=== PATIENT | male | born 1960 | race Caucasian/White ===

== ENCOUNTER 2018-04-24 08:44 | Emergency (ER) | payer OTHER, SELFPAY ==
[2018-04-24 08:45] VITALS: BP 154/89; PULSE 84; RESP 15; TEMP 36.6; O2SAT 95; BMI 31.6
--- NOTE | 2018-04-24 09:30 | ED.VISSUMM ---
- ER Visit Summary Date of Service: 04/24/18 Chief Complaint: Light sensitivity and pain left eye secondary to blunt trauma History of Present Illness: The patient is a 69 F who presents because he states his left eye is no better since yesterday. He was cutting wood with a circular saw. Chip struck left eye in spite of wearing safety glasses. He complains of pain, light sensitivity and foreign body sensation. There is no history of glaucoma. He denies double vision, loss of vision or change in vision. He does report pain with movement of his eye. He denies any other symptoms. Physical Examination: Vital signs noted. Visual acuity is 20/25 right eye, 2030 left eye and 20/25 both eyes. Pupils are equal round reactive. Extraocular muscle intact. Sclerae anicteric. Conjunctive is not injected. There is no obvious foreign body. There is no abnormality the lid, lash or lacrimal apparatus. Inversion the lid reveals no foreign body. Eyes were anesthetized with tetracaine and stained with floor seen. There is photophobia to direct light but not consensual light. There is corneal abrasion 1-2 mm in the limbal 40 from 5:00 to 7:00 left eye. No flare or cells noted. There is no evidence of trauma to the upper eyelid. Test Results: None Emergency Department Course and Treatment: Visual acuity, topical anesthetic and floor seen. Slit-lamp exam and only abnormality was corneal abrasion. Treatment Plan: Referral to ophthalmology Disposition: Discharged to home Impression: Corneal abrasion left eye secondary to blunt trauma This note was generated with [employer] dictation software. It may contain incorrect words, spelling, and punctuation that were not noted in review of the chart prior to signing ED Disposition - Plan for ED Patient: Disposition: Home or Assisted Living Chief Complaint: Eye Problem Instructions: Corneal Injury Referrals: Care Physician,No Primary [Primary Care Provider] - Vincenzo Rice MD [STAFF PHYSICIAN] - 1 Day for another exam
[2018-04-24] MEDS: Tetracaine 0.5% Ophthalmic Bottle 1 DRP EACH EYE (09:37)
== END 2018-04-24 09:51 | disposition home or self-care (01) ==
PROVIDERS: Emergency Provider Emergency Medicine
DX: S05.02XA Injury of conjunctiva and corneal abrasion without foreign body, left eye, initial encounter (principal); W22.8XXA Striking against or struck by other objects, initial encounter; Y93.9 Activity, unspecified; Y92.89 Other specified places as the place of occurrence of the external cause; Y99.9 Unspecified external cause status; Z72.0 Tobacco use
CPT/HCPCS: 99284

== ENCOUNTER 2019-02-04 06:24 | Emergency (ER) | payer OTHER, SELFPAY ==
[2019-02-04 06:24] VITALS: BP 158/99; PULSE 97; RESP 18; TEMP 36.7; O2SAT 97; BMI 32.4
--- NOTE | 2019-02-04 06:35 | RAD_ITS ---
STUDY: X-RAY - LEFT HAND REASON FOR EXAM: Male, 59 years old. Pain TECHNIQUE: 3 view(s) of the hand. COMPARISON: None. FINDINGS: Evaluation of the proximal phalanx of the fourth digit is nondiagnostic due to overlying ring. The patient could not remove the ring. There is mild soft tissue edema. There is a 1 mm bony density projecting over the dorsal aspect of the distal interphalangeal joint of the second digit. There is likely cortical irregularity of the dorsal aspect of the base of the distal phalanx of the second digit. RAD/Hand Min 3 Views IMPRESSION: Evaluation of the proximal phalanx of the fourth digit is nondiagnostic due to overlying ring. The patient could not remove the ring Old or new small avulsion fracture involving the dorsal aspect of the base of distal phalanx of the second digit. This should be correlated with point tenderness and clinical history. Electronically Signed: Herbie Raya, at 7:20 EDT Tel , Service support ,
--- NOTE | 2019-02-04 06:57 | ED.VISSUMM ---
- ER Visit Summary Date of Service: 02/04/19 Chief Complaint: Fall History of Present Illness: The patient is a 48 M who presents after a fall. 4 days ago he was at work. He went in a different door than he usually uses and the threshold is higher. He tripped over the threshold and fell injuring his left hand. No other injuries. He denies paresthesias weakness numbness tingling loss of function. He has tried an herbal supplement for pain but no other medications or treatment. Physical Examination: Afebrile vitals unremarkable No distress Heart regular rate No respiratory distress Patient has some diffuse left hand tenderness no focal bony tenderness no deformity no soft tissue swelling no ecchymosis he has normal sensation to light touch brisk capillary refill active full range of motion normal opposition of the digits Test Results: Left hand x-ray shows no fracture on my review, radiology read pending. Emergency Department Course and Treatment: Patient was advised on supportive care including ice elevation anti-inflammatory use. He will follow-up with Worker's Comp. as an outpatient. Patient discharged. Treatment Plan: [] Disposition: Discharge Impression: Left hand contusion This note was generated with [employer] dictation software. It may contain incorrect words, spelling, and punctuation that were not noted in review of the chart prior to signing ED Disposition - Plan for ED Patient: Referrals: Care Physician,No Primary [Primary Care Provider] -
--- NOTE | 2019-02-04 07:01 | ED.DEP ---
ED Disposition - Plan for ED Patient: Instructions: CONTUSION, Hand Referrals: Care Physician,No Primary [Primary Care Provider] - Corporate,Care [GROUP OF PHYSICIANS] -
[2019-02-04 07:20] VITALS: PULSE 95; RESP 17; O2SAT 97
== END 2019-02-04 07:21 | disposition home or self-care (01) ==
LOC: ED 06:38
PROVIDERS: Emergency Provider Emergency Medicine
DX: S60.222A Contusion of left hand, initial encounter (principal); W01.0XXA Fall on same level from slipping, tripping and stumbling without subsequent striking against object, initial encounter; F41.9 Anxiety disorder, unspecified; Z72.0 Tobacco use
CPT/HCPCS: 73130; 99282

== ENCOUNTER 2020-01-18 02:49 | Emergency (ER) | payer OTHER, SELFPAY ==
[2020-01-18 02:50] VITALS: BP 199/117; PULSE 101; RESP 20; TEMP 36.6; O2SAT 94; BMI 29.8
--- NOTE | 2020-01-18 02:54 | ED.DCSUM_ITS ---
History of Present Illness Chief Complaint: Upper Extremity Injury Informant: Patient Narrative: Patient presents with amputation of the third and fourth digits involving a table saw accident. No other injuries this was work-related. Past Medical History - Allergies and Home Meds Allergies/Adverse Reactions: Allergies No Known Allergies Allergy (Verified 01/18/20 02:56) Primary Care Physician: Angella Physician,No Primary [Primary Care Provider] - Past Medical History: - - Anxiety and depression Smoking Status: Current every day smoker Review of Systems General: Reports: - - 3 Musculoskeletal: Reports: - - Hand laceration Skin: Reports: - - Wound as above Neurological: Reports: Numbness Hematologic: Denies: Easy bruising, Easy bleeding Physical Exam General: - - He does appear in some distress Head: Normocephalic, Atraumatic Cardiovascular: Regular rate, Regular rhythm Respiratory: No distress, CTA bilaterally Abdomen: Soft, Nontender Extremities: - - He has an amputation of the third and fourth digits of his left hand these are both partial amputations. Skin: - - Lacerations as above Neurological: - - Decreased sensation and his distal amputated regions Diagnostic/Tx/Re-eval Hand x-ray interpreted by me shows a third digit distal phalanx comminuted fracture, there is quite a bit of soft tissue disturbance in the third and fourth digits. - Medical Decision Making Patient is found to have a third digit distal phalanx through and through amputation, no fracture on the fourth digit. I will send him to [facility] for hand consult. Ancef, tetanus and analgesia were provided. ED Disposition - Plan for ED Patient: Disposition: Psychiatric Hospital or Unit Diagnosis: Finger amputation, traumatic Referrals: Care Physician,No Primary [Primary Care Provider] -
[2020-01-18] MEDS: HYDROmorphone 1 MG/ML Syringe IV (03:03)
[2020-01-18] MEDS: Diphth,Pertuss(Acell),Tet Vac 0.5 ML Vial IM (03:03)
[2020-01-18] MEDS: Cefazolin 1 GM/50 ML BAG IV (03:08)
--- NOTE | 2020-01-18 03:15 | RAD_ITS ---
STUDY: X-RAY - LEFT HAND REASON FOR EXAM: Male, 60 years old. left hand injury from table saw today. patient states most pain in left third digit. TECHNIQUE: Three view(s) of the hand. COMPARISON: None. FINDINGS: Normal radiocarpal articulation. Normal distal radioulnar joint. Normal visualized carpal bones. Normal carpal articulations Normal carpometacarpal articulation of the thumb. Normal second through fifth carpometacarpal joints. Normal metacarpi. Normal metacarpophalangeal joint of the thumb. Normal interphalangeal joint of the thumb. Normal proximal and distal phalanges of the thumb. Normal metacarpophalangeal joints of the second through fifth fingers. Normal proximal and distal interphalangeal joints of the second through fifth fingers. There is a comminuted displaced fracture of the distal phalanx of the middle finger. The soft tissue structures are unremarkable. RAD/Hand Min 3 Views IMPRESSION: There is a comminuted displaced fracture of the distal phalanx of the middle finger. Electronically Signed: Ryan Haley, at 3:39 EDT Tel , Service support ,
[2020-01-18 04:54] VITALS: BP 151/87; PULSE 86; RESP 18; O2SAT 98
== END 2020-01-18 04:54 | disposition short-term general hospital (02) ==
PROVIDERS: Emergency Provider Emergency Medicine; PCP Internal Medicine
DX: S68.123A Partial traumatic metacarpophalangeal amputation of left middle finger, initial encounter (principal); S68.125A Partial traumatic metacarpophalangeal amputation of left ring finger, initial encounter; Y93.9 Activity, unspecified; W31.2XXA Contact with powered woodworking and forming machines, initial encounter; Y92.89 Other specified places as the place of occurrence of the external cause; Y99.0 Civilian activity done for income or pay; F32.9 Major depressive disorder, single episode, unspecified; F41.9 Anxiety disorder, unspecified; F17.200 Nicotine dependence, unspecified, uncomplicated; Z23 Encounter for immunization
CPT/HCPCS: 73130; 90715; 96365; 96375; 99285; J7050

== ENCOUNTER 2020-06-01 10:24 | Inpatient (IN) | payer MEDICAID, SELFPAY ==
[2020-06-01 10:25] VITALS: BP 127/88; PULSE 96; RESP 18; TEMP 36.6; O2SAT 97; BMI 34.4
--- NOTE | 2020-06-01 10:47 | ED.VIS.GEN ---
History of Present Illness Chief Complaint: Substance Abuse Informant: Patient Onset: Today Timing: Continuous Narrative: Patient wants help stopping drinking. He has been drinking heavily for 40 years, never gone through detox, his last drink was this morning and he has no symptoms of withdrawal at this time although he usually feels shaky every morning before he starts drinking. He states recently, he has been drinking around 15 beers per day. He does not drink anything else and does not use any other illicit substances. He denies any recent illnesses or injuries. He does have hemorrhoids often but denies any bleeding from his bowels recently. He denies any known history of jaundice or itching all over. - Past Medical History (1) Alcoholism Status: Chronic (2) Hypertension Status: Chronic Past Medical History - Allergies and Home Meds Allergies/Adverse Reactions: Allergies No Known Allergies Allergy (Verified 06/01/20 10:28) Primary Care Physician: Annemarie Martinez MD [Primary Care Provider] - Smoking Status: Current every day smoker Review of Systems General: Denies: Chills, Fever, Sweats Eyes: Denies: Visual changes - bilaterally, Diplopia ENT: Denies: Rhinorrhea, Sore throat Cardiovascular: Denies: Chest pain, Palpitations Respiratory: Denies: Dyspnea, Cough, Dyspnea on exertion Gastrointestinal: Denies: Abdominal pain, Nausea, Vomiting, Diarrhea, Melena, Hematochezia Genitourinary: Denies: Dysuria, Hematuria, Frequency Musculoskeletal: Denies: Back pain, Extremity Pain Skin: Denies: Rash, Wounds Neurological: Denies: Headache, Weakness, Numbness Psych: Denies: Suicidal thoughts, Suicidal ideations Physical Exam Vital Signs/Narrative: Vital Signs Temp Pulse Resp BP Pulse Ox 06/01/20 10:25 97.8 F 96 18 127/88 H 97 Inital Vital Signs reviewed: Yes General: Well nourished, Well developed, Obese, No Acute Distress Head: Normocephalic, Atraumatic Eyes: Perrl, EOMI. Negative for: Scleral icterus - And no sublingual jaundice ENT: Moist mucous membranes, No rhinorrhea Neck: Supple, Nontender Cardiovascular: Regular rate, Regular rhythm, No murmurs Respiratory: No distress, CTA bilaterally, Chest nontender Abdomen: Soft, Nontender, Nondistended, Normal bowel sounds Back: Nontender, Normal Inspection Extremities: Nontender, No edema. Negative for: Calf Tenderness Skin: Normal color, No rash, No Trauma. Negative for: Jaundice Neurological: Alert, Oriented x3, Cranial nerves II-XII grossly intact, Normal Strength, Normal Sensation, Normal Gait Psychological: Normal affect, Normal Mood, - - Pleasantly intoxicated Diagnostic/Tx/Re-eval Laboratory Results 06/01/20 06/01/20 06/01/20 12:00 12:35 12:35 WBC 6.5 RBC 4.61 Hgb 15.2 Hct 44.7 MCV 97.0 H MCH 33.0 H MCHC 34.0 RDW Std Deviation 44.0 H RDW Coeff of Ralph 12.3 Plt Count 176 MPV 10.7 Immature Gran % (Auto) 0.500 Neut % (Auto) 47.5 Lymph % (Auto) 42.6 H [place] % (Auto) 6.3 Eos % (Auto) 2.3 Baso % (Auto) 0.8 Absolute Neuts (auto) 3.1 Absolute Lymphs (auto) 2.75 Nucleated RBC % 0 PT 12.8 INR 1.0 Sodium Potassium Chloride Carbon Dioxide Anion Gap BUN Creatinine Estim Creat Clear Calc Est GFR (MDRD) Af Amer Est GFR (MDRD) Non-Af BUN/Creatinine Ratio Glucose Calcium Total Bilirubin AST ALT Alkaline Phosphatase Total Protein Albumin Globulin Albumin/Globulin Ratio Urine Opiates Screen NEGATIVE Urine Methadone Screen NEGATIVE Ur Barbiturates Screen NEGATIVE Ur Phencyclidine Scrn NEGATIVE Ur Amphetamines Screen NEGATIVE U Methamphetamin-MDMA POSITIVE H U Benzodiazepines Scrn NEGATIVE Urine Cocaine Screen NEGATIVE U Cannabinoids Screen NEGATIVE Ur Drug Screen Comment Ethyl Alcohol 06/01/20 06/01/20 12:35 12:35 WBC RBC Hgb Hct MCV MCH MCHC RDW Std Deviation RDW Coeff of Ralph Plt Count MPV Immature Gran % (Auto) Neut % (Auto) Lymph % (Auto) [place] % (Auto) Eos % (Auto) Baso % (Auto) Absolute Neuts (auto) Absolute Lymphs (auto) Nucleated RBC % PT INR Sodium 139 Potassium 4.0 Chloride 106 Carbon Dioxide 26.0 Anion Gap 7 BUN 12 Creatinine 0.75 Estim Creat Clear Calc 100.37 Est GFR (MDRD) Af Amer 137 Est GFR (MDRD) Non-Af 113 BUN/Creatinine Ratio 16.0 Glucose 115 H Calcium 8.8 Total Bilirubin 0.30 AST 26 ALT 54 Alkaline Phosphatase 90 Total Protein 8.4 H Albumin 4.1 Globulin 4.3 H Albumin/Globulin Ratio 1.0 Urine Opiates Screen Urine Methadone Screen Ur Barbiturates Screen Ur Phencyclidine Scrn Ur Amphetamines Screen U Methamphetamin-MDMA U Benzodiazepines Scrn Urine Cocaine Screen U Cannabinoids Screen Ur Drug Screen Comment Ethyl Alcohol 212.0 - Medical Decision Making Patient is showing positive methamphetamine on toxicology but I think this is due to cross-reactivity with his sertraline. Plan is for admission for detox. Patient is stable and currently mildly intoxicated. ED Disposition - Plan for ED Patient: Disposition: Acute Care Hospital [facility] Diagnosis: Alcohol dependence, Alcoholism Referrals: Annemarie Martinez MD [Primary Care Provider] -
--- NOTE | 2020-06-01 11:30 | CM.ED ---
SOCIAL WORK Informant: Nursing Reason for Consult: Substance Abuse Prior to patient's arrival received call from Danyell with [facility] reporting [facility] is covering patient's stay and invoice will need sent to Wero at [facility]. This worker updated registration. Met with patient in room. Introduced role and reason for consult. Patient discussed history of alcohol abuse. Patient states lives home with and reports I know I need to quit drinking. Patient states has already spoken with [facility]. Education provided on [facility] program. All questions answered. Patient in agreement with plan of care. Plan: Admit to [facility], this worker to update [facility] Treatment Navigator. Willa Mayfield, PROJECT ACCOUNT MANAGER, AUTO BODY MECHANIC
[2020-06-01 12:56] LABS: Absolute Lymphocyte Count 2.75 X10^3/uL (0.83-4.51); Absolute Neutrophil Count 3.1 X10^3/uL (2.0-7.7); Basophil# 0.05 X10^3/uL; Basophil% 0.8 % (0-1); Eosinophil# 0.15 X10^3/uL; Eosinophils% 2.3 % (0-5); Hematocrit 44.7 % (40-54); Hemoglobin 15.2 g/dL (13.0-16.5); Lymphocyte # 2.75 X10^3/ul (4.0); Lymphocyte % 42.6 % (19-41); Mean Platelet Vol. 10.7 fl (6.2-12.0); Monocyte# 0.41 X10^3/uL; Monocyte% 6.3 % (0-10); NRBC Flagged by Analyzer 0 % (0-5); Neutrophil # 3.07 X10^3/uL (2.7-7.7); Neutrophil % 47.5 % (47-70); Platelet Count 176 K/mm3 (150-450); RBC Distribution Width CV 12.3 % (11.6-14.6); Red Blood Count 4.61 M/mm3 (4.6-6.2); White Blood Count 6.5 K/mm3 (4.4-11.0)
[2020-06-01 13:05] LABS: Amphetamine Urine VISTA NEGATIVE (<1000 ng/mL); Barbiturate Urine VISTA NEGATIVE (< 200 ng/mL); Benzodiazepine Urine VISTA NEGATIVE (< 200 ng/mL); Cocaine Urine VISTA NEGATIVE (< 300 ng/mL); Ecstacy Urine VISTA POSITIVE (< 500 ng/mL); Methadone Urine VISTA NEGATIVE (< 300 ng/mL); PCP Urine VISTA NEGATIVE (< 25 ng/mL); THC Urine VISTA NEGATIVE (< 50 ng/mL); Vista UDS pH Range 6
[2020-06-01 13:12] LABS: AST(SGOT) 26 U/L (15-37); Alanine Aminotransfer ALT/SGPT 54 U/L (16-61); Albumin, Serum 4.1 g/dL (3.2-5.0); Alkaline Phosphatase 90 U/L (45-117); Anion Gap 7 (5-15); BUN 12 mg/dL (7-18); Calcium,Total 8.8 mg/dL (8.5-10.1); Chloride 106 mmol/L (98-107); Creatinine, Serum 0.75 mg/dL (0.70-1.30); EST Glomerular Filtration Rate 113 mL/min (>60); Est Glom Filt Rate - Afr Amer 137 mL/min (>60); Estimated Creatinine Clearance 100.37 ml/min; Globulin 4.3 g/dL (2.2-4.2); Glucose 115 mg/dL (74-106); Protein, Total 8.4 g/dL (6.4-8.2); Sodium Level 139 mmol/L (136-145)
[2020-06-01 13:14] LABS: Prothrombin Time (Protime)PT. 12.8 SECONDS (11.7-14.9)
[2020-06-01 13:46] VITALS: BP 140/92; PULSE 91; RESP 18; O2SAT 95
--- NOTE | 2020-06-01 13:47 | HP.PCM_ITS ---
Problem List (1) Alcoholism Status: Chronic (2) Hypertension Status: Chronic Qualifiers: Hypertension type: essential hypertension Qualified Code(s): I10 - Essential (primary) hypertension (3) Anxiety and depression Status: Chronic History of Present Illness Date of Admission: 06/01/20 Chief Complaint: Request for medical stabilisation for alcohol withdrawal The patient is a 60 year old M with past medical history of anxiety/depression, chronic alcohol use disorder who comes in for medical stabilization for acute alcohol withdrawal. Patient has been drinking alcohol for the past 40 years. He drinks about 150 cans of beer every week. Patient has been looking for ways to quit. He has not tried to quit before. He spoke to his primary care doctor and was asked to come. He last drank alcohol about 12 hours prior to admission. He admits to some nervousness but no tremors. He denied any dizziness or palpitation or chest pain. His vitals in the ED showed temperature of 97.8F, heart rate 96, blood pressure 127/88, respiratory rate 18, SPO2 is 97% on room air. His CBC is remarkable for elevated MCH and MCV. CMP was unremarkable. Urine tox was positive for methamphetamines. Alcohol level was 212 Past Medical History Past Medical History (Chronic Problems): Chronic Problems Alcoholism (Chronic) Hypertension (Chronic) Anxiety and depression (Chronic) Allergies No Known Allergies Allergy (Verified 06/01/20 10:28) Home Medications: Ambulatory Orders Medication Instructions Recorded Bupropion HCl [Bupropion Xl] 300 mg PO DAILY 01/18/20 Atorvastatin Calcium [Lipitor] 20 mg PO QHS 06/01/20 Lisinopril [Prinivil] 10 mg PO DAILY 06/01/20 Tamsulosin HCl [Flomax] 0.4 mg PO QHS 06/01/20 Venlafaxine XR [Effexor Xr] 37.5 mg PO UD 06/01/20 Surgical History: - - Surgery in his legs, post-war Psychiatric History: Anxiety, Depression Lives: Spouse/ Significant Other, With Family Smoking Status: Current every day smoker Tobacco Use: Cigarettes Alcohol: Heavy Drugs: None - *Family History Maternal History Items: Heart Disease Paternal History Items: COPD Review of Systems Constitutional: Denies: Anorexia, Chills, Fever, Night Sweats, Malaise, Weakness, Weight Change, Fatigue Eyes: Denies: Blurred vision, Cataracts, Conjunctivae Inflammation, Pain, Redness HEENT: Denies: Difficulty Hearing, Difficulty Swallowing, Head Aches, Hearing Changes, Sinus Congestion, Sinus Drainage Cardiovascular: Denies: Chest Pain, Claudication, Palpitations, Paroxysmal Noc. Dyspnea Respiratory: Denies: Cough, Hemoptysis, Shortness of breath at rest, Shortness of breath upon exertion, Sputum production Gastrointestinal: Denies: Abdominal Pain, Hematemesis, Hematochezia, Nausea, Vomiting Genitourinary: Denies: Dysuria, Frequency, Incontinence, Nocturia Musculoskeletal: Denies: Joint Pain, Joint stiffness, Joint swelling, Joint Tenderness Skin: Denies: Rash, Wounds Neurological: Denies: Focal weakness, Numbness, Tingling, Tremor Psychiatric: Denies: Anxiety, Depression, Homicidal Ideations, Suicidal Ideations Hematologic/ Lymphatic: Denies: Easy Bruising, Easy Bleeding VTE Information - Inpt Only VTE Present on Admission: No VTE Pharm Prophylaxis ordered?: Yes Patient Problems: Active and Suspected Problems Alcohol dependence (Acute) - Physical Exam Vitals/I&O's: Vital Signs Temp Pulse Resp BP Pulse Ox 97.8 F 96 18 127/88 H 97 06/01/20 10:25 06/01/20 10:25 06/01/20 10:25 06/01/20 10:25 06/01/20 10:25 Oxygen Delivery Method Room Air Weight: 99.79 kg Body Mass Index (BMI) 34.4 General: Alert, Oriented x3, Cooperative, No apparent distress, - - looks slightly nervous HEENT: Atraumatic, PERRLA, EOMI, Normocephalic Oral: Moist Mucosa Neck: Supple Lungs: Clear to auscultation, Normal air movement Cardiovascular: Regular rate, Regular Rhythm, Normal S1, Normal S2, No murmurs Abdomen: Bowel Sounds Present, Soft, Non Tender, Non-Distended, No Hepato- splenomegaly Extremities: No edema Skin: No rashes, No breakdown Musculoskeletal: No Tenderness to Palpation of Joints or Extremities Lymphatic: No Cervical, Supraclavicular, or Inguinal Adenopathy Neurological: Cranial nerves II-XII grossly intact, Neuro grossly intact Psych/Mental Status: Normal Affect, Appropriate Laboratory Results 06/01/20 12:00: Urine Opiates Screen NEGATIVE, Urine Methadone Screen NEGATIVE, Ur Barbiturates Screen NEGATIVE, Ur Phencyclidine Scrn NEGATIVE, Ur Amphetamines Screen NEGATIVE, U Methamphetamin-MDMA POSITIVE H, U Benzodiazepines Scrn NEGATIVE, Urine Cocaine Screen NEGATIVE, U Cannabinoids Screen NEGATIVE, Ur Drug Screen Comment 06/01/20 12:35: WBC 6.5, RBC 4.61, Hgb 15.2, Hct 44.7, MCV 97.0 H, MCH 33.0 H, MCHC 34.0, RDW Std Deviation 44.0 H, RDW Coeff of Ralph 12.3, Plt Count 176, MPV 10.7, Immature Gran % (Auto) 0.500, Neut % (Auto) 47.5, Lymph % (Auto) 42.6 H, [place] % (Auto) 6.3, Eos % (Auto) 2.3, Baso % (Auto) 0.8, Absolute Neuts (auto) 3.1, Absolute Lymphs (auto) 2.75, Nucleated RBC % 0 06/01/20 12:35: PT 12.8, INR 1.0 06/01/20 12:35: Sodium 139, Potassium 4.0, Chloride 106, Carbon Dioxide 26.0, Anion Gap 7, BUN 12, Creatinine 0.75, Estim Creat Clear Calc 100.37, Est GFR (MDRD) Af Amer 137, Est GFR (MDRD) Non-Af 113, BUN/Creatinine Ratio 16.0, Glucose 115 H, Calcium 8.8, Total Bilirubin 0.30, AST 26, ALT 54, Alkaline Phosphatase 90, Total Protein 8.4 H, Albumin 4.1, Globulin 4.3 H, Albumin/Globulin Ratio 1.0 06/01/20 12:35: Ethyl Alcohol 212.0 Assessment/Plan All Active Problems Alcohol dependence (Acute) 1. Anticipated acute alcohol withdrawal, in a known chronic alcohol use patient Patient drinks about 150 cans of beer daily; 40-year history of chronic alcohol use Request for medical stabilization to quit Would admit to the MedSur floor, monitor on the phenobarbital withdrawal protocol 2. Elevated MCV/MCH, in a known alcoholic, Will check folate, B12, TSH levels 3. Hypertension/hyperlipidemia, stable, continue on lisinopril and atorvastatin 4. Anxiety/depression, continue on home bupropion as well as Effexor 5. DVT prophylaxis-low risk, encourage ambulation 6. Code status - Full code I discussed and explained in details the various types of CODE STATUS-full code, DNR CCA, DNR CC. Patient would not like to be on life support for a long time. He prefers being full code and letting his decide at that time. Time spent discussing CODE STATUS 16 minutes Inpatient E&M: 85131 Init Hosp L2 Procedures: 88147 Advncd Care Plan 30 Min
[2020-06-01 13:57] VITALS: BP 140/92; PULSE 90; RESP 18; TEMP 36.4; O2SAT 98
--- NOTE | 2020-06-01 14:02 | NURSING ---
MED SURG PAINTSIL ALCOHOL DEPENDENCE
--- NOTE | 2020-06-01 14:04 | CM.ED ---
SOCIAL WORK Call to [facility] Treatment Navigator to update on patient's admission. No answer, left message. Plan: Admit to CORI Mayfield MSW, FREIGHT COORDINATOR
[2020-06-01 14:18] VITALS: BMI 34.5
[2020-06-01 15:30] VITALS: BMI 31.6
[2020-06-01 15:33] VITALS: BP 141/99; PULSE 92; RESP 16; TEMP 36.8; O2SAT 93
[2020-06-01] MEDS: Phenobarbital 32.4 MG Tablet 64.8 MG PO ×2 (15:46→19:52)
[2020-06-01 16:25] LABS: Magnesium 2.5 mg/dL (1.6-2.6); Thyroid Stim Hormone (TSH) 1.57 uIU/mL (0.358-3.74)
[2020-06-01] MEDS: Acetaminophen 325 MG Tablet 650 MG PO (19:52)
[2020-06-01] MEDS: hydrOXYzine PAM 25 MG Capsule 50 MG PO (19:52)
[2020-06-01 20:00] VITALS: BP 140/96; PULSE 92; RESP 16; TEMP 36.9; O2SAT 93
[2020-06-01] MEDS: Atorvastatin Calcium 20 MG Tablet PO (21:47)
[2020-06-01] MEDS: Tamsulosin HCl 0.4 MG Capsule PO (21:48)
[2020-06-02] MEDS: Phenobarbital 32.4 MG Tablet 64.8 MG PO ×6 (00:09→21:36)
[2020-06-02 00:12] VITALS: BP 138/92; PULSE 92; RESP 18; TEMP 37.1; O2SAT 98
[2020-06-02 04:08] VITALS: BP 138/96; PULSE 84; RESP 18; TEMP 36.9; O2SAT 98
[2020-06-02 07:31] LABS: Absolute Lymphocyte Count 2.33 X10^3/uL (0.83-4.51); Absolute Neutrophil Count 3.3 X10^3/uL (2.0-7.7); Basophil# 0.05 X10^3/uL; Basophil% 0.8 % (0-1); Eosinophil# 0.11 X10^3/uL; Eosinophils% 1.8 % (0-5); Hematocrit 45.8 % (40-54); Hemoglobin 15.5 g/dL (13.0-16.5); Lymphocyte # 2.33 X10^3/ul (4.0); Lymphocyte % 37.3 % (19-41); Mean Corp Hgb Conc 33.8 g/dL (32-36); Mean Corpuscular Hgb 33.1 pg (27.0-32.0); Mean Corpuscular Volume 97.9 fL (80-94); Mean Platelet Vol. 10.6 fl (6.2-12.0); Monocyte# 0.46 X10^3/uL; Monocyte% 7.4 % (0-10); NRBC Flagged by Analyzer 0 % (0-5); Neutrophil # 3.27 X10^3/uL (2.7-7.7); Neutrophil % 52.4 % (47-70); Platelet Count 170 K/mm3 (150-450); RBC Distribution Width CV 12.5 % (11.6-14.6); RBC Distribution Width SD 44.6 fl (35.1-43.9); Red Blood Count 4.68 M/mm3 (4.6-6.2); White Blood Count 6.2 K/mm3 (4.4-11.0)
[2020-06-02] MEDS: Thiamine Hydrochloride 100 MG Tablet PO (07:44)
[2020-06-02] MEDS: Folic Acid 1 MG Tablet PO (07:44)
[2020-06-02 07:59] LABS: AST(SGOT) 26 U/L (15-37); Alanine Aminotransfer ALT/SGPT 54 U/L (16-61); Albumin, Serum 3.8 g/dL (3.2-5.0); Alkaline Phosphatase 85 U/L (45-117); Anion Gap 6 (5-15); BUN 19 mg/dL (7-18); BUN/Creat Ratio 22.7 RATIO (10-20); Calcium,Total 8.7 mg/dL (8.5-10.1); Chloride 101 mmol/L (98-107); Creatinine, Serum 0.84 mg/dL (0.70-1.30); EST Glomerular Filtration Rate 100 mL/min (>60); Est Glom Filt Rate - Afr Amer 121 mL/min (>60); Estimated Creatinine Clearance 89.62 ml/min; Glucose 109 mg/dL (74-106); Potassium 3.9 mmol/L (3.5-5.1); Protein, Total 7.8 g/dL (6.4-8.2); Sodium Level 135 mmol/L (136-145)
--- NOTE | 2020-06-02 09:56 | ADDICTION ---
This engineering technical writer met with patient in his room to conduct ASAM, MSE and AUDIT assessments and to begin d/c planning. Patient was alert/oriented x4 and participated actively and appropriately. He is appropriate for the 4.0 LOC at this time based on dimension 1 results. He is willing to [facility] for [facility] following d/c from [facility]. This engineering technical writer will provide patient with appointment date and time prior to d/c. Documentation placed in chart and faxed to [facility].
[2020-06-02 09:59] VITALS: BP 145/90; PULSE 82; RESP 16; TEMP 36.7; O2SAT 97
[2020-06-02] MEDS: buPROPion (XL) 300 MG TABLET.XL PO (11:11)
[2020-06-02] MEDS: Venlafaxine XR 37.5 MG Capsule PO (11:11)
[2020-06-02] MEDS: Lisinopril 10 MG Tablet PO (11:12)
[2020-06-02 13:31] LABS: Vitamin B12 447 pg/mL (211-911)
--- NOTE | 2020-06-02 14:01 | PCM.PN.HOSP ---
Patient Problems: Active and Suspected Problems Alcohol dependence (Acute) Reason for Visit: alcohol withdrawal Subjective: No events overnight. Feels well. Last drink was a few hours prior to arrival. Advised to be admitted by [facility] given the large quantity of alcohol he drinks. Vitals/I&O's: Vital Signs Temp Pulse Resp BP Pulse Ox 36.7 C 82 16 145/90 H 97 06/02/20 09:59 06/02/20 09:59 06/02/20 09:59 06/02/20 09:59 06/02/20 09:59 Oxygen Delivery Method Room Air Weight: 91.671 kg Body Mass Index (BMI) 31.6 Intake and Output for Last 24 Hours 05/31/20 06/01/20 06/02/20 23:59 23:59 23:59 Intake Total 650 / 650 500 / 500 Balance 650 / 650 500 / 500 General: Alert, No apparent distress HEENT: Atraumatic, Normocephalic Oral: Moist Mucosa, No Gingival or Mucosal Lesions/ Ulcerations Neck: No Nodes, Thyroid Normal Size and Texture Lungs: Clear to auscultation, Normal air movement, No rhonchi, No wheeze, No rales Cardiovascular: Regular rate, Regular Rhythm, Normal S1, Normal S2, No murmurs Abdomen: Bowel Sounds Present, Soft, Non Tender, Non-Distended, No Hepato-splenomegaly Laboratory Results 06/01/20 12:35: Vitamin B12 447 06/01/20 12:35: Magnesium 2.5, Folate 13.90, TSH 1.57 06/02/20 06:46: WBC 6.2, RBC 4.68, Hgb 15.5, Hct 45.8, MCV 97.9 H, MCH 33.1 H, MCHC 33.8, RDW Std Deviation 44.6 H, RDW Coeff of Ralph 12.5, Plt Count 170, MPV 10.6, Immature Gran % (Auto) 0.300, Neut % (Auto) 52.4, Lymph % (Auto) 37.3, Loíza % (Auto) 7.4, Eos % (Auto) 1.8, Baso % (Auto) 0.8, Absolute Neuts (auto) 3.3, Absolute Lymphs (auto) 2.33, Nucleated RBC % 0 06/02/20 06:46: Sodium 135 L, Potassium 3.9, Chloride 101, Carbon Dioxide 28.0, Anion Gap 6, BUN 19 H, Creatinine 0.84, Estim Creat Clear Calc 89.62, Est GFR (MDRD) Af Amer 121, Est GFR (MDRD) Non-Af 100, BUN/Creatinine Ratio 22.7 H, Glucose 109 H, Calcium 8.7, Total Bilirubin 0.70, AST 26, ALT 54, Alkaline Phosphatase 85, Total Protein 7.8, Albumin 3.8, Globulin 4.0, Albumin/Globulin Ratio 1.0 Current Medications Acetaminophen (Acetaminophen 325 Mg Tablet) 650 mg PO Q6H PRN PRN PRN Reason: HEADACHE/FEVER (T>100F) Last Admin: 06/01/20 19:52 Dose: 650 mg Documented by: Atorvastatin Calcium (Atorvastatin Calcium 20 Mg Tablet) 20 mg PO QHS [facility] Last Admin: 06/01/20 21:47 Dose: 20 mg Documented by: Bupropion HCl (Bupropion (Xl) 300 Mg Tablet.Xl) 300 mg PO DAILY [facility] Last Admin: 06/02/20 11:11 Dose: 300 mg Documented by: Dicyclomine HCl (Dicyclomine 10 Mg Capsule) 20 mg PO Q6H PRN PRN PRN Reason: abdominal discomfort Folic Acid (Folic Acid 1 Mg Tablet) 1 mg PO DAILY@0800 [facility] Last Admin: 06/02/20 07:44 Dose: 1 mg Documented by: Gabapentin (Gabapentin 300 Mg Capsule) 300 mg PO Q8H PRN PRN PRN Reason: moderate to severe anxiety Hydroxyzine Pamoate (Hydroxyzine Vanna 25 Mg Capsule) 50 mg PO Q4H PRN PRN PRN Reason: mild anxiety Last Admin: 06/01/20 19:52 Dose: 50 mg Documented by: Lisinopril (Lisinopril 10 Mg Tablet) 10 mg PO DAILY [facility] Last Admin: 06/02/20 11:12 Dose: 10 mg Documented by: Loperamide HCl (Loperamide 2 Mg Capsule) 2 mg PO Q4H PRN PRN PRN Reason: LOOSE STOOLS Nicotine (Nicotine 21 Mg Patch) 21 mg TD DAILY [facility] Last Admin: 06/02/20 11:11 Dose: 21 mg Documented by: Nicotine Polacrilex (Nicotine Polacrilex 4 Mg Gum) 4 mg PO Q2H PRN PRN PRN Reason: Nicotine Craving Ondansetron HCl (Ondansetron 8 Mg Tablet) 8 mg PO Q8H PRN PRN PRN Reason: NAUSEA Phenobarbital (Phenobarbital 32.4 Mg Tablet) 97.2 mg PO Q4H [facility]; Taper Stop: 06/05/20 23:59 Last Admin: 06/02/20 12:17 Dose: 97.2 mg Documented by: Sodium Chloride (0.9% Saline Lock 10 Ml Syringe) 10 - 40 ml IV UD PRN PRN Reason: SALINE FLUSH Tamsulosin HCl (Tamsulosin Hcl 0.4 Mg Capsule) 0.4 mg PO QHS [facility] Last Admin: 06/01/20 21:48 Dose: 0.4 mg Documented by: Thiamine HCl ([facility] Hydro[facility]ide 100 Mg Tablet) [facility] Last Admin: 06/02/20 07:44 Dose: 100 mg Documented by: Trazodone HCl (Trazodone 100 Mg Tablet) 100 mg PO QHS PRN PRN PRN Reason: INSOMNIA Venlafaxine HCl (Venlafaxine Xr 37.5 Mg Capsule) 37.5 mg PO DAILY [facility] Stop: 06/08/20 10:01 Last Admin: 06/02/20 11:11 Dose: 37.5 mg Documented by: Venlafaxine HCl (Venlafaxine Xr 37.5 Mg Capsule) 37.5 mg PO QODAY [facility] Stop: 06/22/20 10:01 Medical Necessity - Tobacco Use Smoking Status: Current every day smoker Tobacco Use: Cigarettes Assessment/Plan All Active Problems Alcohol dependence (Acute) 1. acute alcohol withdrawal symptoms are rather mild, however, patient endorses that he consumes 150 beers/week. monitor for s/s of DTs continue with phenobarbital, folate and thiamine if patient is well on 06/04, he will be discharged. Inpatient E&M: [id number] [facility] Hosp L2
[2020-06-02 16:13] VITALS: BP 113/82; PULSE 74; RESP 18; TEMP 37; O2SAT 98
[2020-06-02 18:00] VITALS: BP 122/80; PULSE 84; RESP 18; TEMP 36.9; O2SAT 98
[2020-06-02] MEDS: Atorvastatin Calcium 20 MG Tablet PO (21:36)
[2020-06-02] MEDS: Tamsulosin HCl 0.4 MG Capsule PO (21:36)
[2020-06-03] MEDS: Phenobarbital 32.4 MG Tablet 64.8 MG PO ×6 (00:13→20:04)
[2020-06-03 00:15] VITALS: BP 136/92; PULSE 78; RESP 18; TEMP 37.1; O2SAT 98
[2020-06-03 04:44] VITALS: BP 125/86; PULSE 75; RESP 18; TEMP 37; O2SAT 96
[2020-06-03] MEDS: Lisinopril 10 MG Tablet PO (08:14)
[2020-06-03] MEDS: Venlafaxine XR 37.5 MG Capsule PO (08:14)
[2020-06-03] MEDS: buPROPion (XL) 300 MG TABLET.XL PO (08:15)
[2020-06-03] MEDS: Folic Acid 1 MG Tablet PO (08:15)
[2020-06-03] MEDS: Thiamine Hydrochloride 100 MG Tablet PO (08:15)
[2020-06-03 08:17] VITALS: BP 147/96; PULSE 82; RESP 18; TEMP 36.8; O2SAT 95
--- NOTE | 2020-06-03 08:54 | PN_ITS ---
Patient Problems: Active and Suspected Problems Alcohol dependence (Acute) Reason for Visit: alcohol withdrawal Subjective: Denies any complaints. Is feeling well. Tolerating diet. Vitals/I&O's: Vital Signs Temp Pulse Resp BP Pulse Ox 36.8 C 82 18 147/96 H 95 06/03/20 08:17 06/03/20 08:17 06/03/20 08:17 06/03/20 08:17 06/03/20 08:17 Oxygen Delivery Method Room Air Weight: 91.671 kg Body Mass Index (BMI) 31.6 Intake and Output for Last 24 Hours 06/01/20 06/02/20 06/03/20 23:59 23:59 23:59 Intake Total 650 / 650 2200 / 2200 1700 / 1700 Balance 650 / 650 2200 / 2200 1700 / 1700 General: Alert, No apparent distress HEENT: Atraumatic, Normocephalic Oral: Moist Mucosa, No Gingival or Mucosal Lesions/ Ulcerations Neck: No Nodes, Thyroid Normal Size and Texture Lungs: Clear to auscultation, Normal air movement, No rhonchi, No wheeze Cardiovascular: Regular rate, Regular Rhythm, Normal S1, Normal S2, No murmurs Abdomen: Bowel Sounds Present, Soft, Non Tender, Non-Distended, No Hepato- splenomegaly Extremities: No edema, No Calf Tenderness Skin: No rashes, No breakdown Musculoskeletal: No Tenderness to Palpation of Joints or Extremities, No Muscle Wasting Psych/Mental Status: Normal Affect, Appropriate Laboratory Results 06/01/20 12:35: Vitamin B12 447 Current Medications Acetaminophen (Acetaminophen 325 Mg Tablet) 650 mg PO Q6H PRN PRN PRN Reason: HEADACHE/FEVER (T>100F) Last Admin: 06/01/20 19:52 Dose: 650 mg Documented by: Atorvastatin Calcium (Atorvastatin Calcium 20 Mg Tablet) 20 mg PO QHS [facility] Last Admin: 06/02/20 21:36 Dose: 20 mg Documented by: Bupropion HCl (Bupropion (Xl) 300 Mg Tablet.Xl) 300 mg PO DAILY [facility] Last Admin: 06/03/20 08:15 Dose: 300 mg Documented by: Dicyclomine HCl (Dicyclomine 10 Mg Capsule) 20 mg PO Q6H PRN PRN PRN Reason: abdominal discomfort Folic Acid (Folic Acid 1 Mg Tablet) 1 mg PO DAILY@0800 [facility] Last Admin: 06/03/20 08:15 Dose: 1 mg Documented by: Gabapentin (Gabapentin 300 Mg Capsule) 300 mg PO Q8H PRN PRN PRN Reason: moderate to severe anxiety Hydroxyzine Pamoate (Hydroxyzine Vanna 25 Mg Capsule) 50 mg PO Q4H PRN PRN PRN Reason: mild anxiety Last Admin: 06/01/20 19:52 Dose: 50 mg Documented by: Lisinopril (Lisinopril 10 Mg Tablet) 10 mg PO DAILY [facility] Last Admin: 06/03/20 08:14 Dose: 10 mg Documented by: Loperamide HCl (Loperamide 2 Mg Capsule) 2 mg PO Q4H PRN PRN PRN Reason: LOOSE STOOLS Nicotine (Nicotine 21 Mg Patch) 21 mg TD DAILY [facility] Last Admin: 06/03/20 04:45 Dose: 21 mg Documented by: Nicotine Polacrilex (Nicotine Polacrilex 4 Mg Gum) 4 mg PO Q2H PRN PRN PRN Reason: Nicotine Craving Ondansetron HCl (Ondansetron 8 Mg Tablet) 8 mg PO Q8H PRN PRN PRN Reason: NAUSEA Phenobarbital (Phenobarbital 32.4 Mg Tablet) 64.8 mg PO Q4H [facility]; Taper Stop: 06/05/20 23:59 Last Admin: 06/03/20 08:14 Dose: 64.8 mg Documented by: Sodium Chloride (0.9% Saline Lock 10 Ml Syringe) 10 - 40 ml IV UD PRN PRN Reason: SALINE FLUSH Tamsulosin HCl (Tamsulosin Hcl 0.4 Mg Capsule) 0.4 mg PO QHS [facility] Last Admin: 06/02/20 21:36 Dose: 0.4 mg Documented by: Thiamine HCl (Thiamine Hydrochloride 100 Mg Tablet) [facility] Last Admin: 06/03/20 08:15 Dose: 100 mg Documented by: Trazodone HCl (Trazodone 100 Mg Tablet) 100 mg PO QHS PRN PRN PRN Reason: INSOMNIA Venlafaxine HCl (Venlafaxine Xr 37.5 Mg Capsule) 37.5 mg PO DAILY [facility] Stop: 06/08/20 10:01 Last Admin: 06/03/20 08:14 Dose: 37.5 mg Documented by: Venlafaxine HCl (Venlafaxine Xr 37.5 Mg Capsule) 37.5 mg PO QODAY [facility] Stop: 06/22/20 10:01 STROKE Vital Signs/Narrative: Vital Signs Temp Pulse Resp BP Pulse Ox 06/03/20 08:17 36.8 C 82 18 147/96 H 95 Medical Necessity - Tobacco Use Smoking Status: Current every day smoker Tobacco Use: Cigarettes Assessment/Plan All Active Problems Alcohol dependence (Acute) 1. acute alcohol withdrawal * symptoms are rather mild, however, patient endorses that he consumes 150 beers/week. * monitor for s/s of DTs * continue with phenobarbital, folate and thiamine * if patient is well on 06/04, he will be discharged. * Patient to follow up with Kacie for counseling Inpatient E&M: [id number] [facility] Hosp L2
--- NOTE | 2020-06-03 09:41 | ADDICTION ---
This resume writer met with patient in his room to finalize d/c plan. Patient plans to d/c tomorrow (06/04/2020) and is scheduled to meet with Kacie for ongoing counseling on 06/12/2020. He is amiable to this appointment time and states that he is hopeful that it will be helpful. He also stated that he hopes that his health will improve without active alcohol use. He reports that his will be transporting him upon d/c and noted that he will need to contact her with time of d/c.
[2020-06-03 11:01] VITALS: BP 145/98; PULSE 73; RESP 18; TEMP 37.1; O2SAT 98
--- NOTE | 2020-06-03 13:11 | CHAPLAIN ---
Type of Pastoral Visit _x__ Initial Visit ___ Follow-up Visit ___ On-call Visit ___ General Patient Visit ___ Spiritual Assessment ___ Family Conference ___ Bereavement ___ Rapid Response ___ Code Blue ___ Other (describe below) Pastoral Care Referral From _x__ Patient ___ Family ___ Nurse ___ Physician ___ Tester Wafer Substrate ___ Shirt Maker ___ Other (describe below) Sacrament/Intervention _x__ Active listening ___ Anointing ___ Quaker ___ Bereavement ___ Communion _x__ Addis exploration ___ _x__ Life review _x__ Prayer ___ Reconciliation ___ Sacrament of Sick _x__ Supportive presence ___ Wedding ___ Other (describe below) Pastoral Comments patient speaks of his search for help including prayer and seeking a renewed relationship with God; pt mentions that he wants to read Bible again; a Bible was given to patient on return to his room;
[2020-06-03 15:59] VITALS: BP 137/85; PULSE 67; RESP 18; TEMP 36.6; O2SAT 97
[2020-06-03 20:06] VITALS: BP 125/77; PULSE 77; RESP 18; TEMP 36.6; O2SAT 97
[2020-06-03] MEDS: Tamsulosin HCl 0.4 MG Capsule PO (22:45)
[2020-06-03] MEDS: Atorvastatin Calcium 20 MG Tablet PO (22:45)
[2020-06-04] MEDS: Phenobarbital 32.4 MG Tablet 64.8 MG PO ×2 (00:27→06:13)
[2020-06-04 03:00] VITALS: BP 142/96; PULSE 71; RESP 18; TEMP 35.9; O2SAT 96
--- NOTE | 2020-06-04 07:45 | PCS.PANDOC ---
PANDEMIC DOCUMENTATION INITIATED: Date: 06/01/2020 Time: 220
--- NOTE | 2020-06-04 09:29 | DCINST_ITS ---
- Discharge Diagnoses Current Active Problems: Current Active and Chronic Problems Alcoholism (Chronic) Hypertension (Chronic) Alcohol dependence (Acute) Anxiety and depression (Chronic) You will use the following diet at home:: No restrictions Your food should be the consistency of: Regular Allergies/Adverse Reactions: Allergies No Known Allergies Allergy (Verified 06/01/20 10:28) Medications to take at Discharge Bupropion HCl [Bupropion Xl] 300 mg PO DAILY 01/18/20 Atorvastatin Calcium [Lipitor] 20 mg PO QHS 06/01/20 Lisinopril [Prinivil] 10 mg PO DAILY 06/01/20 Tamsulosin HCl [Flomax] 0.4 mg PO QHS 06/01/20 Venlafaxine XR [Effexor Xr] 37.5 mg PO UD 06/01/20 Multivitamin 1 each PO DAILY #1 tablet 06/04/20 The following prescriptions were given: Multivitamin 1 each PO DAILY #1 tablet Primary Care Physician: Annemarie Martinez MD [Primary Care Provider] - Within 1 Month Test Results: Test results from this visit will be discussed in further detail at your follow- up appointment, if applicable. Please Follow Up With: [facility] When: 06/12/2020, already scheduled Proposed Discharge Date: 06/04/20
--- NOTE | 2020-06-04 09:30 | PCM.DC.SUM ---
Discharge Date and Diagnosis - Problem List Patient Problems: Active and Suspected Problems Alcohol dependence (Acute) Date of Admission: 06/01/20 Date of Discharge: 06/04/20 - Primary Discharge Diagnosis Acute Problems: Active Problems Alcohol dependence (Acute) - Secondary Discharge Diagnosis Chronic Problems: Chronic Problems Alcoholism (Chronic) Hypertension (Chronic) Anxiety and depression (Chronic) Hospital Course and Treatment Operations: None Procedures: None Summary of Care Provided: The patient is a 60 year old M presents seeking treatment for acute alcohol withdrawal. Patient was directed here by 180. Patient drinks 150 beers per week. Patient was started on phenobarbital taper. Patient's course was completely uncomplicated and patient had really no symptoms while he was here. Patient being discharged on the and will be following up with [facility] on the . Patient will be started on multivitamin daily. [] Patient Problems: Active and Suspected Problems Alcohol dependence (Acute) - Physical Exam Vitals/I&O's: Vital Signs Temp Pulse Resp BP Pulse Ox 35.9 C L 71 18 142/96 H 96 06/04/20 03:00 06/04/20 03:00 06/04/20 03:00 06/04/20 03:00 06/04/20 03:00 Oxygen Delivery Method Room Air Weight: 91.671 kg Body Mass Index (BMI) 31.6 Intake and Output for Last 24 Hours 06/02/20 06/03/20 06/04/20 23:59 23:59 23:59 Intake Total 2200 / 2200 3060 / 3060 250 / 250 Balance 2200 / 2200 3060 / 3060 250 / 250 General: Alert, No apparent distress HEENT: Atraumatic, Normocephalic Psych/Mental Status: Normal Affect, Appropriate Current Medications Acetaminophen (Acetaminophen 325 Mg Tablet) 650 mg PO Q6H PRN PRN PRN Reason: HEADACHE/FEVER (T>100F) Last Admin: 06/01/20 19:52 Dose: 650 mg Documented by: Atorvastatin Calcium (Atorvastatin Calcium 20 Mg Tablet) 20 mg PO QHS [facility] Last Admin: 06/03/20 22:45 Dose: 20 mg Documented by: Bupropion HCl (Bupropion (Xl) 300 Mg Tablet.Xl) 300 mg PO DAILY [facility] Last Admin: 06/03/20 08:15 Dose: 300 mg Documented by: Dicyclomine HCl (Dicyclomine 10 Mg Capsule) 20 mg PO Q6H PRN PRN PRN Reason: abdominal discomfort Folic Acid (Folic Acid 1 Mg Tablet) 1 mg PO DAILY@0800 [facility] Last Admin: 06/03/20 08:15 Dose: 1 mg Documented by: Gabapentin (Gabapentin 300 Mg Capsule) 300 mg PO Q8H PRN PRN PRN Reason: moderate to severe anxiety Hydroxyzine Pamoate (Hydroxyzine Vanna 25 Mg Capsule) 50 mg PO Q4H PRN PRN PRN Reason: mild anxiety Last Admin: 06/01/20 19:52 Dose: 50 mg Documented by: Lisinopril (Lisinopril 10 Mg Tablet) 10 mg PO DAILY [facility] Last Admin: 06/03/20 08:14 Dose: 10 mg Documented by: Loperamide HCl (Loperamide 2 Mg Capsule) 2 mg PO Q4H PRN PRN PRN Reason: LOOSE STOOLS Nicotine (Nicotine 21 Mg Patch) 21 mg TD DAILY [facility] Last Admin: 06/03/20 04:45 Dose: 21 mg Documented by: Nicotine Polacrilex (Nicotine Polacrilex 4 Mg Gum) 4 mg PO Q2H PRN PRN PRN Reason: Nicotine Craving Ondansetron HCl (Ondansetron 8 Mg Tablet) 8 mg PO Q8H PRN PRN PRN Reason: NAUSEA Phenobarbital (Phenobarbital 32.4 Mg Tablet) 64.8 mg PO Q6H [facility]; Taper Stop: 06/05/20 23:59 Last Admin: 06/04/20 06:13 Dose: 64.8 mg Documented by: Sodium Chloride (0.9% Saline Lock 10 Ml Syringe) 10 - 40 ml IV UD PRN PRN Reason: SALINE FLUSH Tamsulosin HCl (Tamsulosin Hcl 0.4 Mg Capsule) 0.4 mg PO QHS [facility] Last Admin: 06/03/20 22:45 Dose: 0.4 mg Documented by: Thiamine HCl (Thiamine Hydrochloride 100 Mg Tablet) [facility] Last Admin: 06/03/20 08:15 Dose: 100 mg Documented by: Trazodone HCl (Trazodone 100 Mg Tablet) 100 mg PO QHS PRN PRN PRN Reason: INSOMNIA Venlafaxine HCl (Venlafaxine Xr 37.5 Mg Capsule) 37.5 mg PO DAILY [facility] Stop: 06/08/20 10:01 Last Admin: 06/03/20 08:14 Dose: 37.5 mg Documented by: Venlafaxine HCl (Venlafaxine Xr 37.5 Mg Capsule) 37.5 mg PO QODAY [facility] Stop: 06/22/20 10:01 Discharge Diet: No Restrictions Home Medications: Medications to take at Discharge Bupropion HCl [Bupropion Xl] 300 mg PO DAILY 01/18/20 Atorvastatin Calcium [Lipitor] 20 mg PO QHS 06/01/20 Lisinopril [Prinivil] 10 mg PO DAILY 06/01/20 Tamsulosin HCl [Flomax] 0.4 mg PO QHS 06/01/20 Venlafaxine XR [Effexor Xr] 37.5 mg PO UD 06/01/20 Multivitamin 1 each PO DAILY #1 tablet 06/04/20 Following Prescriptions Were Given to Patient: Multivitamin 1 each PO DAILY #1 tablet Primary Care Physician: Annemarie Martinez MD [Primary Care Provider] - Within 1 Month Please Follow Up With: [facility] When: 06/12/2020, already scheduled Disposition: Home Minutes spent on discharge:: 26 Patient Condition:: Good Medical Necessity - Tobacco Use Smoking Status: Current every day smoker Tobacco Use: Cigarettes Meaningful Use Info Meaningful Use Diagnoses (Choose all that apply): None applicable Inpatient E&M: 09331 Disch Hosp
[2020-06-04 09:40] VITALS: BP 171/102; PULSE 75; RESP 16; TEMP 36.5; O2SAT 96
[2020-06-04] MEDS: Lisinopril 10 MG Tablet PO (09:44)
[2020-06-04] MEDS: Venlafaxine XR 37.5 MG Capsule PO (09:44)
[2020-06-04] MEDS: Thiamine Hydrochloride 100 MG Tablet PO (09:44)
[2020-06-04] MEDS: Folic Acid 1 MG Tablet PO (09:44)
[2020-06-04] MEDS: buPROPion (XL) 300 MG TABLET.XL PO (09:44)
== END 2020-06-04 10:03 | disposition home or self-care (01) | DRG 775 ==
LOC: ED 11:39 → MS3 14:20
PROVIDERS: Admitting Provider Internal Medicine; Emergency Provider Emergency Medicine; PCP Internal Medicine
DX: F10.239 Alcohol dependence with withdrawal, unspecified (principal); F10.229 Alcohol dependence with intoxication, unspecified; Y90.7 Blood alcohol level of 200-239 mg/100 ml; I10 Essential (primary) hypertension; E78.5 Hyperlipidemia, unspecified; F41.9 Anxiety disorder, unspecified; F32.9 Major depressive disorder, single episode, unspecified; F17.210 Nicotine dependence, cigarettes, uncomplicated; Z82.5 Family history of asthma and other chronic lower respiratory diseases; Z66 Do not resuscitate
CPT/HCPCS: 80053; 80307; 80320; 82607; 82746; 83735; 84443; 85025; 85610; 99283; 99406; G0480

== ENCOUNTER 2020-07-01 10:27 | Emergency (ER) | payer MEDICAID, SELFPAY ==
[2020-07-01 10:28] VITALS: BP 146/93; PULSE 84; RESP 18; TEMP 36.4; O2SAT 96; BMI 31.6
--- NOTE | 2020-07-01 10:39 | ED.DCSUM_ITS ---
History of Present Illness Chief Complaint: Upper Extremity Injury Informant: Patient Narrative: Patient is a 60-year-old male who presents to the emergency department for right shoulder pain and left foot pain. The shoulder pain has been a chronic issue has been going on for multiple years that comes and goes. He denies any trauma to set off this episode. He is right-handed at baseline. He denies any loss of sensation. No radiation of the pain. Is mostly over the superior/anterior asp ect of the shoulder. Flexing the arm does make his symptoms worse. He denies any neck pain or chest pain/shortness of breath. No upper extremity swelling. He is also coming in for left foot pain. This is going on for the past 2 weeks. Its been a constant pain. Walking on it does make the symptoms worse. He tried taking ibuprofen for both of these symptoms which has not helped. He denies any trauma to the foot. He has never had this symptom before. The dorsal aspect of the foot has been swollen. Denies any color changes. No loss of sensation. Denies any systemic symptoms including any fever/chills. Past Medical History - Allergies and Home Meds Allergies/Adverse Reactions: Allergies No Known Allergies Allergy (Verified 07/01/20 10:30) Primary Care Physician: Annemarie Martinez MD [Primary Care Provider] - 3-5 Days if not improving Prior records reviewed: Yes Past Medical History: - - Alcohol dependence, HTN Surgical History: - - Surgery in his legs, post-war Smoking Status: Current every day smoker Alcohol: Sober - Family History Maternal Family History: Reports: Heart Disease Paternal Family History: Reports: COPD Review of Systems All systems negative except as indicated General: Denies: Chills, Fever, Sweats Eyes: Denies: Visual changes - bilaterally, Diplopia ENT: Denies: Rhinorrhea, Sore throat Cardiovascular: Denies: Chest pain, Palpitations Respiratory: Denies: Dyspnea, Cough, Dyspnea on exertion Gastrointestinal: Denies: Abdominal pain, Nausea, Vomiting Musculoskeletal: Reports: Swelling, Extremity Pain. Denies: Neck pain, Back pain Skin: Denies: Rash, Wounds Neurological: Denies: Headache, Weakness, Numbness Psych: Denies: Suicidal thoughts, Suicidal ideations Physical Exam Vital Signs/Narrative: Vital Signs Temp Pulse Resp BP Pulse Ox 07/01/20 10:28 97.6 F L 84 18 146/93 H 96 Inital Vital Signs reviewed: Yes General: Well nourished, Well developed, No Acute Distress Head: Normocephalic, Atraumatic Eyes: Perrl, EOMI ENT: Moist mucous membranes, No rhinorrhea Neck: Supple, Nontender Cardiovascular: Regular rate, Regular rhythm, No murmurs Respiratory: No distress, CTA bilaterally, Chest nontender Abdomen: Soft, Nontender, Nondistended Back: Nontender, Normal Inspection Extremities: No edema, Tenderness - Tenderness which appears to be around the site of insertion point of the biceps. No crepitus appreciated. Full range of motion. 5 out of 5 muscle strength. 2+ radial pulse. Sensation intact., - - Tenderness to dorsal/lateral aspect of left foot. There is some mild swelling present. No warmth or erythema. Brisk capillary refill of all toes. Sensation intact. Full muscle strength. Patient able to ambulate on it. Skin: Normal color, No rash Neurological: Alert, Oriented x3, Normal Strength, Normal Sensation Psychological: Normal affect, Normal Mood Diagnostic/Tx/Re-eval - Medical Decision Making Patient presents to the ED for 2 separate complaints. He has nontraumatic right shoulder pain and left foot pain. The shoulder pain is a chronic issue for him. The left foot pain is new over the past 2 weeks. Do not feel any imaging is necessary of the shoulder as it is a chronic issue and nontraumatic. Patient most likely has a tendinitis of the biceps. He could also have some arthritis. Will obtain x-ray of the foot. X-ray of the foot did not show any acute osseous fracture. We will give him a walking boot. Recommend symptomatic treatment with ibuprofen and Tylenol as well as rice. To follow-up with his PCP. Return precautions were discussed wi th him. Patient understands and is agreeable this plan. Discharged home in stable condition. All questions answered. ED Disposition - Plan for ED Patient: Disposition: Home or Assisted Living Diagnosis: Right shoulder pain, Foot pain, left Instructions: ED Foot Sprain, ED RICE, ED Shoulder Pain, Uncertain Cause Referrals: Annemarie Martinez MD [Primary Care Provider] - 3-5 Days if not improving
[2020-07-01] MEDS: Ketorolac 30 MG/ML Syringe IM (10:52)
--- NOTE | 2020-07-01 10:58 | RAD_ITS ---
STUDY: X-RAY - LEFT FOOT CLINICAL: Male, 60 years old. Pt states left foot pain x 2 weeks, no known injury, most pain near left 5th metatarsal TECHNIQUE: 3 view(s) of the foot. COMPARISON: None. FINDINGS: Normal talus, calcaneus, and tarsal bones. Normal visualized subtalar, talonavicular, calcaneocuboid, tarsal and tarsometatarsal articulations. Normal metatarsi. There is degenerative arthrosis of the metatarsophalangeal joint of the hallux . Normal tibial and fibular sesamoid bones. Normal interphalangeal joint of the great toe. Normal phalanges of the great toe. Normal second through fifth metatarsophalangeal joints. Normal interphalangeal joints and phalanges of the lesser toes. The soft tissue structures are unremarkable. RAD/Foot min 3 Views IMPRESSION: Degenerative changes of the first metatarsophalangeal joint. Electronically Signed: Anatoliy Mcmahon, at 11:22 EST , Service support ,
[2020-07-01 12:20] VITALS: BP 135/91; PULSE 77; RESP 16; O2SAT 96
--- NOTE | 2020-07-01 12:21 | ED.RN ---
DISCHARGE INSTRUCTIONS GIVEN TO AND REVIEWED WITH PATIENT, PATIENT DENIES QUESTIONS OR CONCERNS AND VOICES UNDERSTANDING OF DISCHARGE INSTRUCTIONS. PT AMBULATES OUT OF ROOM WITHOUT DIFFICULTY.
== END 2020-07-01 12:21 | disposition home or self-care (01) ==
LOC: ED 10:50
PROVIDERS: Emergency Provider Emergency Medicine; PCP Internal Medicine
DX: M25.511 Pain in right shoulder (principal); M79.672 Pain in left foot; M79.89 Other specified soft tissue disorders; I10 Essential (primary) hypertension; F17.200 Nicotine dependence, unspecified, uncomplicated; Z82.49 Family history of ischemic heart disease and other diseases of the circulatory system
CPT/HCPCS: 73630; 96372; 99283

== ENCOUNTER 2021-01-20 06:49 | Emergency (ER) | payer MEDICAID, SELFPAY ==
[2021-01-20 06:50] VITALS: BP 158/104; PULSE 89; RESP 16; TEMP 36.6; O2SAT 99; BMI 31.8
--- NOTE | 2021-01-20 07:06 | RAD_ITS ---
STUDY: X-RAY - LEFT KNEE REASON FOR EXAM: Left knee pain this morning, no specific injury. TECHNIQUE: 4 view(s) of the knee. COMPARISON: None. FINDINGS: Normal visualized distal femur. Normal visualized proximal tibia and fibula. Normal proximal tibiofibular articulation. Normal medial femorotibial compartment. Normal lateral femorotibial compartment. Normal patellofemoral articulation. There is a small joint effusion. RAD/Knee 4 or More Views IMPRESSION: Small joint effusion. Otherwise, unremarkable x-ray examination of the left knee. Electronically Signed: Duran Mallory MD at 7:43 EDT Tel , Service support ,
--- NOTE | 2021-01-20 07:07 | ED.VIS.LOWEX ---
HPI History of Present Illness Chief Complaint: Lower Extremity Injury Informant: patient Occured/Mechanism Mechanism/Context: No injury and No blunt trauma Comment: Atraumatic left knee pain Onset/Context/Timing Current Severity: Mild Maximum Severity: Mild Narrative Narrative: 61-year-old male history of hypertension high cholesterol. States she has had atraumatic left knee pain for at least 2 months. States it is a daily occurrence. Increasing pain with walking. He denies any fever or chills. He denies any redness or swelling. He does not know of any history of any specific injury. He has never had any knee surgery. He treats it with Motrin without any relief. He denies any hip or ankle pain. He has not noticed any swelling. Prior similar symptoms: No Recent Illness/Hospitalization: No PFSH PFSH Home Medications lisinopril 10 mg PO DAILY 06/01/20 [History Last Taken 06/01/20] Allergy/AdvReac Type Severity Reaction Status Date / Time No Known Allergies Allergy Verified 01/20/21 06:52 Social History Smoking Status: Current every day smoker tobacco type: cigarettes ROS ROS ED ROS Narrative Denies recent illness. Review of Systems ROS Unobtainable: Denies due to encephalopathy Constitutional Constitutional ED: Denies chills or fever(s) Eyes Eyes: Denies change in vision ENT ENT ED: Denies ear pain or sore throat Cardiovascular Cardiovascular: Denies chest pain Respiratory/Chest Respiratory/Chest: Denies dyspnea Gastrointestinal Gastrointestinal: Denies abdominal pain, diarrhea, nausea or vomiting Genitourinary Genitourinary ED: Denies dysuria Musculoskeletal Musculoskeletal: Denies myalgias Integumentary Denies rash Neurologic Neurologic: Denies headache(s) Psychiatric Psychiatric: Denies depression Endocrine Endocrinology: Denies polyuria Hematologic/Lymphatic Hematologic/Lymphatic: Denies easy bruising Allergic/Immunologic Allergic/Immunologic ED: Denies urticaria EXAM Physical Exam Narrative Exam Narrative: Well-appearing middle-age male no acute distress. Vital signs stable afebrile. H EENT exam unremarkable. Neck nontender no lymphadenopathy. Lungs clear to auscultation bilaterally. Heart regular rate and rhythm no murmur. Abdomen soft nontender normal bowel sounds no peritoneal signs. Patient moves all 4 extremities. Neurovascular intact. 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 Dorsi plantar flexion intact. Specifically left knee nontender. Nonswollen. He has full flexion-extension of the knee. ACL and PCL, MCL and LCL are intact. Quadriceps patellar tendons intact. He has full flexion-extension of the knee. There is no redness or warmth. Dorsi plantar flexion intact of the foot. Calf is nontender without swelling. Otherwise exam unremarkable. Const Vital Signs: 01/20/21 06:50 Temperature 97.8 F Temperature Source Oral Pulse Rate 89 Respiratory Rate 16 Blood Pressure 158/104 H Blood Pressure Mean 122 Pulse Ox 99 Oxygen Delivery Method Room Air HEENT normocephalic and atraumatic Eyes PERRL Neck full ROM and supple Thyroid: Negative for tender Chest Wall inspection of chest normal and palpation of chest normal Resp normal respiratory effort, no retractions and clear to auscultation bilaterally Auscultation: Negative for rales, rhonchi or wheezes GI non-tender, non-distended and no masses Auscultation: normoactive bowel sounds Palpation: soft; Negative for tender or guarding Back/Spine no CVA tenderness General Back: Negative for CVA tenderness Cervical Spine: Negative for cervical spine tenderness Extremity normal to inspection and full ROM General Extremety ED: Negative for cyanosis or edema General Extremity: Negative for cyanosis or edema Neuro oriented x3 Sensorium / Orientation: alert, oriented to person, oriented to place and oriented to time Motor Exam: strength 5/5 throughout Psych mental status grossly normal Skin Lesions: no lesions Rashes: no rashes MDM MDM MDM Narrative Medical decision making narrative: Patient has a history of knee pain for at least 2 months. No known injury. Primarily in the posterior knee. Exam unremarkable. X-ray being obtained. Repeat exam unchanged. Patient I discussed his x-ray showing a small joint effusion. This may be from arthritis and may be from a meniscal tear. He will be referred to orthopedics. Ice and Motrin to decrease pain and inflammation. Radiography Diagnostic Testing: Radiology Impression Knee X-Ray 01/20/21 07:06 IMPRESSION: Small joint effusion. Otherwise, unremarkable x-ray examination of the left knee. Electronically Signed: Duran Mallory MD at 7:43 EDT Tel , Service support , Left knee x-ray 4 views. No acute bony abnormality. Small effusion. Otherwise no acute abnormality. Interpreted by myself and also read and agree with the radiologist. Discharge Plan Triage Chief Complaint: Lower Extremity Injury ED Provider: Gino Toure Dx/Rx/DC Orders Clinical Impression: Effusion of knee joint, left Instructions: ED Knee Effusion Prescriptions: No Action lisinopril 10 MG tablet 10 mg PO DAILY RF: 0 Primary Care Provider: Divine Peters NP Referrals: Lázaro Montoya DO [STAFF PHYSICIAN] - As soon as possible Divine Peters NP, [employer] [Primary Care Provider] - Activity Restrictions/Additional Instructions: You have a fluid collection in your left knee called a knee effusion. This may be from arthritis it may be from a torn meniscus. Follow-up with orthopedics to have further evaluation of your knee. You may need an MRI looking for possible meniscal tear. Ice and elevate the knee to decrease pain and swelling. Motrin to decrease pain and swelling also. Disposition Disposition: Home, Self Care
[2021-01-20 08:32] VITALS: BP 125/77; PULSE 62; RESP 15; O2SAT 98
== END 2021-01-20 08:34 | disposition home or self-care (01) ==
PROVIDERS: Emergency Provider Emergency Medicine; PCP Registered Nurse
DX: M25.462 Effusion, left knee (principal); M25.562 Pain in left knee; I10 Essential (primary) hypertension; E78.00 Pure hypercholesterolemia, unspecified; Z79.899 Other long term (current) drug therapy; F17.210 Nicotine dependence, cigarettes, uncomplicated
CPT/HCPCS: 73564; 99282

== ENCOUNTER 2021-07-27 05:57 | Emergency (ER) | payer OTHER, SELFPAY ==
[2021-07-27 05:58] VITALS: BP 147/94; PULSE 87; RESP 16; TEMP 36.1; O2SAT 100; BMI 32.5
--- NOTE | 2021-07-27 06:31 | RAD_ITS ---
STUDY: X-RAY - LEFT WRIST REASON FOR EXAM: Male, 61 years old. Drill bit vs left wrist TECHNIQUE: 3 view(s) of the wrist were obtained. COMPARISON: None. FINDINGS: Normal visualized distal radius and ulna. Normal radiocarpal articulation. Normal distal radioulnar articulation. Normal carpal bones. Normal carpal articulations. Normal carpometacarpal articulation of the thumb. Normal second through fifth carpometacarpal articulations. Normal visualized metacarpal bones. There is mild soft tissue edema suggested. No visualized fracture. RAD/Wrist min 3 Views IMPRESSION: No visualized acute fracture. No foreign body. Electronically Signed: Joan White MD at 7:00 EST Reading Location ID and State: [facility] / [place] Tel , Service support ,
--- NOTE | 2021-07-27 06:33 | EX.ED.UPPERE ---
HPI History of Present Illness HPI Narrative: Drillbit versus left palmar wrist. Work injury. Within the last hour. Tetanus up-to-date. Chief Complaint: Laceration Informant: patient Occured/Mechanism Mechanism/Context: Yes puncture wound Onset/Context/Timing Onset: Today and Hours Context: Sudden Onset Timing: Continuous Quality of Pain: Sharp Current Severity: Moderate Maximum Severity: Moderate Associated Symptoms Associated Symptoms: Negative for Parasthesia, Weakness and Loss of Funtion Narrative Narrative: 61-year-old male [id number]. 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 Patient is right-hand dominant. And he accidentally drilled his left wrist. Denies any other injuries. Pain at the site. No pulsatile bleeding. No numbness or weakness to his left hand. No other injuries. Tetanus Immunization: <5 years Prior similar symptoms: No Recent Illness/Hospitalization: No PFSH PFSH Medical History BPH (benign prostatic hyperplasia) Hyperlipidemia Hypertension Pre-diabetes Home Medications atorvastatin 20 mg tablet 20 ea PO DAILY 01/21/21 [History Last Taken Unknown] lisinopril 20 mg tablet 20 mg PO DAILY tab 01/21/21 [History Last Taken Unknown] meloxicam 15 mg tablet 15 mg PO DAILY #30 tab 01/21/21 [Rx Last Taken Unknown] tamsulosin 0.4 mg capsule 0.4 cap PO DAILY 01/21/21 [History Last Taken Unknown] cephalexin 500 mg PO Q6H 5 Days #20 cap 07/27/21 [Rx Last Taken Unknown] Allergy/AdvReac Type Severity Reaction Status Date / Time No Known Allergies Allergy Verified 07/27/21 06:02 Family History Uncle Cancer Mother Diabetes CVA (cerebral vascular accident) Social History household members: spouse and other details: granddaughter housing: house Smoking Status: Current every day smoker tobacco type: cigarettes alcohol intake: former do you feel safe at home: Yes ROS ROS ED ROS Narrative Patient denies recent illness. Review of Systems ROS Unobtainable: Denies due to encephalopathy Constitutional Constitutional ED: Denies fever(s) Eyes Eyes: Denies change in vision ENT ENT ED: Denies ear pain Cardiovascular Cardiovascular: Denies chest pain Respiratory/Chest Respiratory/Chest: Denies dyspnea Gastrointestinal Gastrointestinal: Denies abdominal pain Genitourinary Genitourinary ED: Denies dysuria Musculoskeletal Musculoskeletal: Denies myalgias Integumentary Denies rash Neurologic Neurologic: Denies headache(s) Psychiatric Psychiatric: Denies depression Endocrine Endocrinology: Denies polyuria Hematologic/Lymphatic Hematologic/Lymphatic: Denies easy bruising Allergic/Immunologic Allergic/Immunologic ED: Denies urticaria EXAM Physical Exam Narrative Exam Narrative: Thin 11-year-old male no acute distress. Vital signs stable afebrile. HEENT exam unremarkable. Lungs are clear. Heart regular rhythm. Left wrist palmar aspect just before the hand he is a puncture wound. In the medial aspect of the wrist and goes in the ulnar direction. Its 1 to 2 inches in length. There is mild swelling. Puncture wound itself is unremarkable. Currently there is no active bleeding. Area has mild tenderness. No gross bony deformity. He has full flexion-extension of the wrist. Radial and ulnar deviation. 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 Normal touch sensation to all digits. Normal cap refill. Proximally the forearm and upper arm is unremarkable. Otherwise exam is unremarkable. Const Vital Signs: 07/27/21 05:58 Temperature 97 F L Temperature Source Temporal Pulse Rate 87 Respiratory Rate 16 Blood Pressure 147/94 H Blood Pressure Mean 111 Pulse Ox 100 Oxygen Delivery Method Room Air Positive well nourished and well developed; Negative for obese, cachectic, contractures or unkempt General Appearance ED: well developed and NAD; Negative for unkempt, cachectic, contractures, cyanotic or diaphoretic Nutritional Appearance: Negative for cachectic or obese HEENT Reports moist mucous membranes normocephalic and atraumatic Eyes EOMs intact bilaterally Neck full ROM and supple General: Negative for tenderness Chest Wall inspection of chest normal and palpation of chest normal Resp normal respiratory effort and clear to auscultation bilaterally Effort and Inspection: Negative for pain with movement Auscultation: Negative for rales, rhonchi or wheezes Cardio regular rate, S1 normal heart sound, S2 normal heart sound and no murmurs GI non-tender, non-distended and no masses Auscultation: normoactive bowel sounds Palpation: soft; Negative for tender, guarding or rebound tenderness present Back/Spine no CVA tenderness Cervical Spine: Negative for cervical spine tenderness Thoracic Spine / Upper Back: Negative for thoracic spinal tenderness Lumbar Spine / Lower Back: Negative for lumbar spinal tenderness Extremity normal to inspection and full ROM Extremity Narrative: Left wrist palmar side puncture wound. Mild swelling. Full flexion-extension. No bleeding at this time. No pulsatile bleeding. Left hand as full range of motion. 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 Normal sensation. Normal cap refill. He is able to open close the hand without any difficulty. General Extremety ED: Negative for edema General Extremity: Negative for edema Neuro oriented x3, moves all extremities, no focal motor deficits and no sensory deficits noted Sensorium / Orientation: alert, oriented to person, oriented to place and oriented to time; Negative for orientation impaired, lethargic or stuporous Motor Exam: strength 5/5 throughout Psych mental status grossly normal Appearance: Negative for unkempt Mood & Affect: Negative for depressed or tearful Skin Skin Narrative: Puncture wound left wrist. Lesions: no lesions Rashes: no rashes Trauma: Negative for no lacerations or abrasions MDM MDM MDM Narrative Medical decision making narrative: Patient has a puncture wound to left wrist. His last tetanus shot was 2 years ago. Wound to be clean. X-rays being obtained because a drill bit reportedly broke make sure there is no foreign body in the wound. At this time he may not need any suture repair. Due to it being a puncture wound he will be placed on antibiotics. Currently the left hand is completely neurovascularly intact with good pulses and cap refill. Repeat exam patient is doing well at 7:12 AM. He has had no increased swelling. There is no expanding hematoma. He remains to have full flexion-extension of the left wrist. 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 Both radial and ulnar pulses remain present. I went over home-going instructions with the patient. Ice and elevate. Tylenol Motrin for pain. Watch for any signs of infection or swelling if seen return. He will be placed on Keflex 500 mg 4 times a day for 5 days tried prevent any infection from the puncture wound. The wound does not need to be closed with sutures at this time. Currently there is no bleeding. Radiography Diagnostic Testing: Left wrist x-ray 3 views interpreted myself shows no acute abnormality. There is no fracture nor signs of any foreign body. Radiologist also read the film and agrees. I went over the films with the patient. Discharge Plan Triage Chief Complaint: Laceration ED Provider: Gino Toure Dx/Rx/DC Orders Clinical Impression: Puncture wound of left wrist, Encounter related to worker's compensation claim Instructions: ED Puncture Wound (General) Prescriptions: New cephalexin 500 mg capsule 500 mg PO Q6H 5 Days Qty: 20 RF: 0 No Action meloxicam 15 mg tablet 15 mg PO DAILY Qty: 30 RF: 0 tamsulosin 0.4 mg capsule 0.4 cap PO DAILY RF: 0 lisinopril 20 mg tablet 20 mg PO DAILY RF: 0 atorvastatin 20 mg tablet 20 ea PO DAILY RF: 0 Primary Care Provider: Divine Peters NP Referrals: [facility] [GROUP OF PHYSICIANS] - 3-5 Days if not improving Divine Peters NP, [employer] [Primary Care Provider] - Activity Restrictions/Additional Instructions: Ice and elevate your left wrist to decrease pain and swelling. Watch for any signs of infection such as redness, fever, increasing pain or swelling if seen return. Tylenol or Motrin for pain. Clean the wound daily and apply antibiotic ointment. Take the antibiotic Keflex 1 pill 4 times a day for the next 5 days to try to prevent any infection. Disposition Disposition: Home, Self Care
[2021-07-27] MEDS: HYDROcodone Bitartrate/Apap 5/325 Tablet PO (06:44)
[2021-07-27 07:22] VITALS: BP 124/69; PULSE 72; RESP 15; O2SAT 98
== END 2021-07-27 07:23 | disposition home or self-care (01) ==
PROVIDERS: Emergency Provider Emergency Medicine; PCP Registered Nurse; Visit Provider Emergency Medicine
DX: S61.532A Puncture wound without foreign body of left wrist, initial encounter (principal); E78.5 Hyperlipidemia, unspecified; F17.210 Nicotine dependence, cigarettes, uncomplicated; I10 Essential (primary) hypertension; W29.8XXA Contact with other powered hand tools and household machinery, initial encounter; Y99.0 Civilian activity done for income or pay; Y92.89 Other specified places as the place of occurrence of the external cause
CPT/HCPCS: 73110; 99284; A4216